=== PATIENT | female | born 1985 | race Caucasian/White ===

== ENCOUNTER 2018-05-05 21:28 | Emergency (ER) | payer BC, SELFPAY ==
[2018-05-05 21:29] VITALS: BP 103/66; PULSE 159; RESP 20; TEMP 37.9; O2SAT 98; BMI 30.7
--- NOTE | 2018-05-05 23:04 | EKG12_ITS ---
Test Reason : GENERAL ILLNESS Blood Pressure : / mmHG Vent. Rate : 118 BPM Atrial Rate : 118 BPM P-R Int : 142 ms QRS Dur : 082 ms QT Int : 316 ms P-R-T Axes : 052 087 011 degrees QTc Int : 442 ms Sinus tachycardia Possible Left atrial enlargement Nonspecific ST and T wave abnormality Abnormal ECG Confirmed by ESTELA PARKER, SHIRA ([id number]), editor [employer] journal SARABJIT VIVAR ([id number]) on 05/09/2018 8:56:57 AM Referred By: JULIO Confirmed By:SHIRA PALMER MD
--- NOTE | 2018-05-05 23:07 | ED.VISSUMM ---
- ER Visit Summary Date of Service: 05/05/18 Chief Complaint: Fever and headache History of Present Illness: The patient is a 32 F who presents for 1 day of fever and headache. Patient states she woke up this morning with a headache and took Excedrin. She has not felt well all day. She took a nap and woke up with a fever of 104. She also has had an associated sore throat that is now improved. She was nauseated. She denies any abdominal pain, vomiting, diarrhea, urinary symptoms. She feels achy all over, including her jaw, in the neck down the back. She recently was treated for a dental infection and is currently on an antibiotic for it. Her son recently was diagnosed with strep throat and is being treated for it. Physical Examination: Vital signs: Febrile, hemodynamically stable, no hypoxia on room air General: well nourished, well developed, appears unwell, able to tolerate the lights on Skin: Very warm and moist, flushed, no rash, no pallor HEENT: normocephalic and atraumatic; PERRL, EOMI, moist mucous membranes, exterior oropharynx shows erythema and mild tonsillar swelling without overt exudate, no sublingual edema, no other lesions, no gingival lesions or noted abscesses, tenderness over the TM joints bilaterally, no submandibular adenopathy, tenderness to the bilateral paraspinal musculature, neck is supple with full range of motion, no meningismus Cardiovascular: Tachycardic rate and rhythm without murmurs, no peripheral edema, 2+ pulses all distal extremities Respiratory: No increased work of breathing, lungs are clear to auscultation bilaterally, no rales, rhonchi or wheezing Abdominal: Abdomen is soft, nontender with normoactive bowel sounds, no guarding or rebound, no masses MSK: Moves all extremities, no deformities, normal strength Neuro: Awake and alert, oriented ?4. No facial droop, sensation and motor function intact and symmetric Test Results: Abnormal Lab Results 05/05/18 05/05/18 05/05/18 23:05 23:30 23:30 WBC 8.7 RBC 4.63 Hgb 13.2 Hct 38.6 MCV 83.4 MCH 28.5 MCHC 34.2 RDW 12.9 RDW Differential 38.8 Plt Count 236 MPV 10.0 Immature Gran % (Auto) 0.100 Neut % (Auto) 88.0 H Lymph % (Auto) 5.8 L [place] % (Auto) 5.6 Eos % (Auto) 0.3 Baso % (Auto) 0.2 Absolute Neuts (auto) 7.7 Absolute Lymphs (auto) 0.51 L Total Counted Not Reportable PT 13.8 INR 1.1 APTT 31.2 Sodium Potassium Chloride Carbon Dioxide Anion Gap BUN Creatinine Estim Creat Clear Calc Est GFR (MDRD) Af Amer Est GFR (MDRD) Non-Af BUN/Creatinine Ratio Glucose Lactic Acid Calcium Total Bilirubin AST ALT Alkaline Phosphatase Total Creatine Kinase Total Protein Albumin Globulin Albumin/Globulin Ratio Urine Color Yellow Urine Clarity Sl. Cloudy Urine pH 5.0 Ur Specific [place] 1.015 Urine Protein Negative Urine Glucose (UA) Normal Urine Ketones Negative Urine Occult Blood 25 H Urine Nitrite Negative Urine Bilirubin Negative Urine Urobilinogen Normal Ur Leukocyte Esterase 25 H Urine RBC 0-5 SEEN Urine WBC 0 SEEN Ur Squamous Epith Cells 5-10 SEEN Urine Bacteria RARE Urine Mucus 1+ Urine Test Negative 05/05/18 05/05/18 23:30 23:30 WBC RBC Hgb Hct MCV MCH MCHC RDW RDW Differential Plt Count MPV Immature Gran % (Auto) Neut % (Auto) Lymph % (Auto) [place] % (Auto) Eos % (Auto) Baso % (Auto) Absolute Neuts (auto) Absolute Lymphs (auto) Total Counted PT INR APTT Sodium 137 Potassium 3.5 Chloride 105 Carbon Dioxide 23.0 Anion Gap 9 BUN 13 Creatinine 0.95 Estim Creat Clear Calc 80.32 Est GFR (MDRD) Af Amer 89 Est GFR (MDRD) Non-Af 73 BUN/Creatinine Ratio 13.7 Glucose 123 H Lactic Acid 1.0 Calcium 8.8 Total Bilirubin 0.60 AST 38 H ALT 57 H Alkaline Phosphatase 81 Total Creatine Kinase 31 Total Protein 8.0 Albumin 4.0 Globulin 4.0 Albumin/Globulin Ratio 1.0 Urine Color Urine Clarity Urine pH Ur Specific [place] Urine Protein Urine Glucose (UA) Urine Ketones Urine Occult Blood Urine Nitrite Urine Bilirubin Urine Urobilinogen Ur Leukocyte Esterase Urine RBC Urine WBC Ur Squamous Epith Cells Urine Bacteria Urine Mucus Urine Test Clinical Impression(s) from Imaging Studies Chest X-Ray 05/05/18 23:40 IMPRESSION: There is no evidence of focal consolidation or pleural effusion. Electronically Signed: Mihaela Ventura MD at 0:18 EDT Tel Direct: [phone], Service support , Facial/Sinus 05/06/18 01:05 IMPRESSION: Left maxillary antral retention cyst. No acute sinusitis or mastoiditis. Cervical lymphoid hyperplasia. No abscess or collection. No peridental abscess detected. Prominent bilateral palatine tonsils possibly secondary to inflammation. Electronically Signed: Manjula Aldridge MD at 2:25 EDT , Service support , Medications Given Discontinued Medications Acetaminophen (Tylenol) 1,000 mg PO X1 ONE Stop: 05/05/18 23:05 Last Admin: 05/05/18 23:28 Dose: 1,000 mg Sodium Chloride () 1,000 mls @ 999 mls/hr IV .Q1H1M JASPREET Last Admin: 05/05/18 23:28 Dose: 999 mls/hr Sodium Chloride () 1,000 mls @ 999 mls/hr IV .Q1H1M ONE Stop: 05/06/18 01:09 Last Admin: 05/06/18 00:31 Dose: 999 mls/hr Levofloxacin (Levaquin Iv) 500 mg in 100 mls @ 100 mls/hr IV X1 ONE Stop: 05/06/18 03:06 Last Admin: 05/06/18 02:25 Dose: 100 mls/hr Ketorolac Tromethamine (Toradol) 15 mg IV X1 ONE Stop: 05/06/18 00:08 Last Admin: 05/06/18 00:29 Dose: 15 mg Emergency Department Course and Treatment: Because patient presented with tachycardia, tachypnea and fever, sepsis workup was performed. She did not have any meningeal signs on examination thus no lumbar puncture was performed. Patient was given Tylenol and IV fluids. Labs showed no leukocytosis, no bandemia, no significant hepatic derangements, renal derangements or electrolyte derangements. Urine was negative for infection. Lactate was 1.0. negative. Strep swab was negative. Patient continued to be tachycardic, although it improved from her initial presentation. She also continued to complain of the headache, that she was given Toradol and additional IV fluids. Because of her recent history of dental infection and now her worsening of her condition, CT of the sinuses was performed to evaluate for any possible infiltration into the sinuses or formation of an abscess. In the meantime, patient was started on coverage for sinusitis with Levaquin. CT showed enlargement of the tonsils and cervical lymphadenopathy but no other acute findings. After receiving Toradol and IV fluids, patient's tachycardia had resolved, now with a heart rate of 88. Fever has resolved. Patient feels much better, and is no longer sweaty or flushed. Her neck was supple, nontender, full active range of motion, negative jolt sign. She stated her headache was much better and only minor now. It is unclear the exact cause of patient's symptoms, but given the recent dental infection, she was covered for sinusitis/ failed treatment of dental infection with Levaquin (patient allergic to PCNs), receiving an IV dose in the emergency department while her workup was in progress. Patient is to return if she has any worsening of her condition. Discharged home. Treatment Plan: [] Disposition: [] Impression: Febrile illness This note was generated with [employer] dictation software. It may contain incorrect words, spelling, and punctuation that were not noted in review of the chart prior to signing ED Disposition - Plan for ED Patient: Disposition: Home or Assisted Living Chief Complaint: Fever Instructions: ED Fever Unconf Cause, ED Sinusitis Abx Tx Prescriptions: Levofloxacin [Levaquin] 500 mg PO DAILY #4 tab Referrals: Isaac Munoz III, MD [Primary Care Provider] - 3-5 Days if not improving Additional Instructions: You were worked up for your headache, fever, sore throat and sore muscles. Your workup did not show an obvious source for the symptoms, with no findings of an abscess from your recent dental infection that might be causing your fever. You were given antibiotics to cover you for acute sinusitis. Please use Tylenol, ibuprofen or naproxen as needed for any further fever, headache and achiness. If at any point your symptoms worsen, you develop a stiff neck, severe unrelenting headache, difficulty swallowing, blurry or double vision, intolerance of light, severe nausea or vomiting, chest pain, shortness of breath, or any other concerns, please return immediately to the emergency department for another evaluation.
--- NOTE | 2018-05-05 23:10 | ED.DCSUM_ITS ---
- ER Visit Summary Date of Service: 05/05/18 Chief Complaint: Fever and headache History of Present Illness: The patient is a 32 F who presents for 1 day of fever and headache. Patient states she woke up this morning with a headache and took Excedrin. She has not felt well all day. She took a nap and woke up with a fever of 104. She also has had an associated sore throat that is now improved. She was nauseated. She denies any abdominal pain, vomiting, diarrhea , urinary symptoms. She feels achy all over, including her jaw, in the neck down the back. She recently was treated for a dental infection and is currently on an antibiotic for it. Her son recently was diagnosed with strep throat and is being treated for it. Physical Examination: Vital signs: Febrile, hemodynamically stable, no hypoxia on room air General: well nourished, well developed, appears unwell, able to tolerate the lights on Skin: Very warm and moist, flushed, no rash, no pallor HEENT: normocephalic and atraumatic; PERRL, EOMI, moist mucous membranes, exterior oropharynx shows erythema and mild tonsillar swelling without overt exudate, no sublingual edema, no other lesions, no gingival lesions or noted abscesses, tenderness over the TM joints bilaterally, no submandibular adenopathy, tenderness to the bilateral paraspinal musculature, neck is supple with full range of motion, no meningismus Cardiovascular: Tachycardic rate and rhythm without murmurs, no peripheral edema , 2+ pulses all distal extremities Respiratory: No increased work of breathing, lungs are clear to auscultation bilaterally, no rales, rhonchi or wheezing Abdominal: Abdomen is soft, nontender with normoactive bowel sounds, no guarding or rebound, no masses MSK: Moves all extremities, no deformities, normal strength Neuro: Awake and alert, oriented ?4. No facial droop, sensation and motor function intact and symmetric Test Results: Abnormal Lab Results 05/05/18 05/05/18 05/05/18 23:05 23:30 23:30 WBC 8.7 RBC 4.63 Hgb 13.2 Hct 38.6 MCV 83.4 MCH 28.5 MCHC 34.2 RDW 12.9 RDW Differential 38.8 Plt Count 236 MPV 10.0 Immature Gran % (Auto) 0.100 Neut % (Auto) 88.0 H Lymph % (Auto) 5.8 L [place] % (Auto) 5.6 Eos % (Auto) 0.3 Baso % (Auto) 0.2 Absolute Neuts (auto) 7.7 Absolute Lymphs (auto) 0.51 L Total Counted Not Reportable PT 13.8 INR 1.1 APTT 31.2 Sodium Potassium Chloride Carbon Dioxide Anion Gap BUN Creatinine Estim Creat Clear Calc Est GFR (MDRD) Af Amer Est GFR (MDRD) Non-Af BUN/Creatinine Ratio Glucose Lactic Acid Calcium Total Bilirubin AST ALT Alkaline Phosphatase Total Creatine Kinase Total Protein Albumin Globulin Albumin/Globulin Ratio Urine Color Yellow Urine Clarity Sl. Cloudy Urine pH 5.0 Ur Specific [place] 1.015 Urine Protein Negative Urine Glucose (UA) Normal Urine Ketones Negative Urine Occult Blood 25 H Urine Nitrite Negative Urine Bilirubin Negative Urine Urobilinogen Normal Ur Leukocyte Esterase 25 H Urine RBC 0-5 SEEN Urine WBC 0 SEEN Ur Squamous Epith Cells 5-10 SEEN Urine Bacteria RARE Urine Mucus 1+ Urine Test Negative 05/05/18 05/05/18 23:30 23:30 WBC RBC Hgb Hct MCV MCH MCHC RDW RDW Differential Plt Count MPV Immature Gran % (Auto) Neut % (Auto) Lymph % (Auto) [place] % (Auto) Eos % (Auto) Baso % (Auto) Absolute Neuts (auto) Absolute Lymphs (auto) Total Counted PT INR APTT Sodium 137 Potassium 3.5 Chloride 105 Carbon Dioxide 23.0 Anion Gap 9 BUN 13 Creatinine 0.95 Estim Creat Clear Calc 80.32 Est GFR (MDRD) Af Amer 89 Est GFR (MDRD) Non-Af 73 BUN/Creatinine Ratio 13.7 Glucose 123 H Lactic Acid 1.0 Calcium 8.8 Total Bilirubin 0.60 AST 38 H ALT 57 H Alkaline Phosphatase 81 Total Creatine Kinase 31 Total Protein 8.0 Albumin 4.0 Globulin 4.0 Albumin/Globulin Ratio 1.0 Urine Color Urine Clarity Urine pH Ur Specific [place] Urine Protein Urine Glucose (UA) Urine Ketones Urine Occult Blood Urine Nitrite Urine Bilirubin Urine Urobilinogen Ur Leukocyte Esterase Urine RBC Urine WBC Ur Squamous Epith Cells Urine Bacteria Urine Mucus Urine Test Clinical Impression(s) from Imaging Studies Chest X-Ray 05/05/18 23:40 IMPRESSION: There is no evidence of focal consolidation or pleural effusion. Electronically Signed: Mihaela Ventura MD at 0:18 EDT Tel Direct: [phone], Service support , Facial/Sinus 05/06/18 01:05 IMPRESSION: Left maxillary antral retention cyst. No acute sinusitis or mastoiditis. Cervical lymphoid hyperplasia. No abscess or collection. No peridental abscess detected. Prominent bilateral palatine tonsils possibly secondary to inflammation. Electronically Signed: Manjula Aldridge MD at 2:25 EDT , Service support , Medications Given Discontinued Medications Acetaminophen (Tylenol) 1,000 mg PO X1 ONE Stop: 05/05/18 23:05 Last Admin: 05/05/18 23:28 Dose: 1,000 mg Sodium Chloride () 1,000 mls @ 999 mls/hr IV .Q1H1M JASPREET Last Admin: 05/05/18 23:28 Dose: 999 mls/hr Sodium Chloride () 1,000 mls @ 999 mls/hr IV .Q1H1M ONE Stop: 05/06/18 01:09 Last Admin: 05/06/18 00:31 Dose: 999 mls/hr Levofloxacin (Levaquin Iv) 500 mg in 100 mls @ 100 mls/hr IV X1 ONE Stop: 05/06/18 03:06 Last Admin: 05/06/18 02:25 Dose: 100 mls/hr Ketorolac Tromethamine (Toradol) 15 mg IV X1 ONE Stop: 05/06/18 00:08 Last Admin: 05/06/18 00:29 Dose: 15 mg Emergency Department Course and Treatment: Because patient presented with tachycardia, tachypnea and fever, sepsis workup was performed. She did not have any meningeal signs on examination thus no lumbar puncture was performed. Patient was given Tylenol and IV fluids. Labs showed no leukocytosis, no bandemia, no significant hepatic derangements, renal derangements or electrolyte derangements. Urine was negative for infection. Lactate was 1.0. negative. Strep swab was negative. Patient continued to be tachycardic, although it improved from her initial presentation. She also continued to complain of the headache, that she was given Toradol and additional IV fluids. Because of her recent history of dental infection and now her worsening of her condition, CT of the sinuses was performed to evaluate for any possible infiltration into the sinuses or formation of an abscess. In the meantime, patient was started on coverage for sinusitis with Levaquin. CT showed enlargement of the tonsils and cervical lymphadenopathy but no other acute findings. After receiving Toradol and IV fluids, patient's tachycardia had resolved, now with a heart rate of 88. Fever has resolved. Patient feels much better, and is no longer sweaty or flushed. Her neck was supple, nontender, full active range of motion, negative jolt sign. She stated her headache was much better and only minor now. It is unclear the exact cause of patient's symptoms, but given the recent dental infection, she was covered for sinusitis/ failed treatment of dental infection with Levaquin (patient allergic to PCNs), receiving an IV dose in the emergency department while her workup was in progress. Patient is to return if she has any worsening of her condition. Discharged home. Treatment Plan: [] Disposition: [] Impression: Febrile illness This note was generated with [employer]ango dictation software. It may contain incorrect words, spelling, and punctuation that were not noted in review of the chart prior to signing ED Disposition - Plan for ED Patient: Disposition: Home or Assisted Living Chief Complaint: Fever Instructions: ED Fever Unconf Cause, ED Sinusitis Abx Tx Prescriptions: Levofloxacin [Levaquin] 500 mg PO DAILY #4 tab Referrals: Isaac Munoz III, MD [Primary Care Provider] - 3-5 Days if not improving Additional Instructions: You were worked up for your headache, fever, sore throat and sore muscles. Your workup did not show an obvious source for the symptoms, with no findings of an abscess from your recent dental infection that might be causing your fever. You were given antibiotics to cover you for acute sinusitis. Please use Tylenol, ibuprofen or naproxen as needed for any further fever, headache and achiness. If at any point your symptoms worsen, you develop a stiff neck, severe unrelenting headache, difficulty swallowing, blurry or double vision, intolerance of light, severe nausea or vomiting, chest pain, shortness of breath , or any other concerns, please return immediately to the emergency department for another evaluation.
[2018-05-05] MEDS: Acetaminophen 500 MG Tablet 1000 MG PO (23:28)
[2018-05-05] MEDS: 0.9% Normal Saline 1,000 ML 999 ML IV (23:28)
--- NOTE | 2018-05-05 23:40 | RAD_ITS ---
STUDY: X-RAY CHEST REASON FOR EXAM: Female, 32 years old. Fever TECHNIQUE: Frontal and lateral views of the chest were obtained. COMPARISON: Chest CTA dated April 28, 2014 FINDINGS: The lungs are adequately aerated. There are no focal airspace opacities. There is no demonstrated pleural abnormality. The cardiac silhouette is normal in size. The mediastinum and hilar regions are unremarkable. Normal visualized pulmonary arteries. Normal visualized aortic arch and descending thoracic aorta. The thoracic spine is unremarkable. The visualized ribs, clavicles, and shoulders are unremarkable. There is no demonstrated abnormality of the visualized upper abdomen. RAD/Chest PA and Lateral IMPRESSION: There is no evidence of focal consolidation or pleural effusion. Electronically Signed: Mihaela Ventura MD at 0:18 EDT Tel Direct: [phone], Service support ,
[2018-05-05 23:45] LABS: White Blood Cells 0 SEEN /hpf (0-5)
[2018-05-05 23:48] VITALS: BP 104/94; PULSE 119; RESP 29; O2SAT 100
[2018-05-05 23:49] LABS: Color, Urine Yellow (Yellow); Glucose, Dipstick Normal (Normal); Ketone-Dipstick Negative (Negative); Leukocyte Esterase-Dipstick 25 /ul (Negative); Nitrite-Dipstick Negative (Negative); Occult Blood-Urine 25 /ul (Negative); Protein-Dipstick Negative (Negative); Specific Gravity, Urine 1.015 (1.002-1.030); Urine Bilirubin Dipstick Negative (Negative); Urine Clarity Sl. Cloudy (Clear); Urine Urobilinogen Normal (Normal)
[2018-05-05 23:51] LABS: Internal QC Validated? YES +Cl - CLEAR BKGD; Pregnancy, Urine Negative Negative
[2018-05-05 23:52] LABS: International Normalized Ratio 1.1; Prothrombin Time (Protime)PT. 13.8 SECONDS (11.7-14.9)
[2018-05-05 23:53] LABS: Partial Thromboplast Time 31.2 Seconds (24.1-36.2)
[2018-05-05 23:54] LABS: Bacteria RARE /hpf (None Seen); Squamous Epithelial Cells - UA 5-10 SEEN /hpf (5-10)
[2018-05-05 23:55] LABS: Mucous, Urine 1+ /hpf (<or=2+); Red Blood Cells-Urine 0-5 SEEN /hpf (0-5)
[2018-05-05 23:58] LABS: Absolute Lymphocyte Count 0.51 X10^3/ul (0.83-4.51); Absolute Neutrophil Count 7.7 X10^3/uL (2.0-7.7); Basophil# 0.02 X10^3/uL; Basophil% 0.2 % (0-1); Eosinophil# 0.03 X10^3/uL; Eosinophils% 0.3 % (0-5); Hematocrit 38.6 % (37-47); Hemoglobin 13.2 g/dl (12.0-15.0); Lymphocyte # 0.51 X10^3/ul (4.0); Lymphocyte % 5.8 % (19-41); Mean Corp Hgb Conc 34.2 g/gl (32-36); Mean Corpuscular Hgb 28.5 pg (27.0-32.0); Mean Corpuscular Volume 83.4 fL (81-99); Monocyte# 0.49 X10^3/uL; Monocyte% 5.6 % (0-10); Neutrophil # 7.66 X10^3/uL (2.7-7.7); Platelet Count 236 K/mm3 (150-450); RBC Distribution Width CV 12.9 % (11.6-14.6); RBC Distribution Width SD 38.8 fl (35.1-43.9); Red Blood Count 4.63 M/mm3 (4.2-5.4); White Blood Count 8.7 K/mm3 (4.4-11.0)
[2018-05-05 23:59] LABS: Differential Indicated SCAN CRITERIA MET; POSITIVE COUNT NO; POSITIVE DIFFERENTIAL YES; POSITIVE MORPHOLOGY NO
[2018-05-06 00:04] VITALS: BP 94/60; PULSE 112; RESP 29; O2SAT 96
[2018-05-06 00:05] VITALS: TEMP 37.1
[2018-05-06 00:12] LABS: AST(SGOT) 38 U/L (15-37); Alanine Aminotransfer ALT/SGPT 57 U/L (13-56); Alkaline Phosphatase 81 U/L (45-117); Anion Gap 9 (5-15); BUN 13 mg/dL (7-18); BUN/Creat Ratio 13.7 RATIO (10-20); CPK Total, Creatine Kinase 31 U/L (26-192); Calcium,Total 8.8 mg/dL (8.5-10.1); Chloride 105 mmol/L (98-107); Creatinine, Serum 0.95 mg/dL (0.55-1.02); EST Glomerular Filtration Rate 73 mL/min (>60); Est Glom Filt Rate - Afr Amer 89 mL/min (>60); Estimated Creatinine Clearance 80.32 ml/min; Glucose 123 mg/dL (74-106); Potassium 3.5 mmol/L (3.5-5.1); Sodium Level 137 mmol/L (136-145)
[2018-05-06] MEDS: Ketorolac 15 MG/ML Vial IV (00:29)
[2018-05-06] MEDS: 0.9% Normal Saline 1,000 ML 999 ML IV (00:31)
[2018-05-06 00:55] VITALS: BP 94/59; PULSE 103; RESP 26; O2SAT 97
[2018-05-06 01:00] VITALS: BP 95/55; PULSE 105; RESP 28; O2SAT 95
--- NOTE | 2018-05-06 01:05 | CT_ITS ---
STUDY: CT FACIAL BONES WITH CONTRAST REASON FOR EXAM: Female, 32 years old. Fever and headache, treated with antibiotics for dental infection. RADIATION DOSAGE (If Supplied By Facility): CTDIvol = ( 29.38 ) mGy, DLP = ( 532.76 ) mGycm TECHNIQUE: The patient was scanned in a multi detector CT scanner. Transaxial imaging was performed following the intravenous administration of 100 ml of Isovue 300 contrast material. Sagittal and coronal images were reconstructed. Individualized dose optimization techniques were used for this CT. COMPARISON: None. FINDINGS: Normal soft tissue structures. Normal orbital king and orbital contents. Normal nasal bones and anterior nasal spine. Normal facial bones. There is no demonstrated fracture. Round low attenuation in the maxillary antrum 1.9 x 1.4 cm likely retention cyst with otherwise normal visualized paranasal sinuses. The bilateral mastoid air cells are clear. The mandible and bilateral temporomandibular joints are intact. Bilateral right greater than left neck lymph nodes likely lymphoid hyperplasia. Prominent bilateral palatine tonsils. CT/Sinus/Facial Bone WITH Contras IMPRESSION: Left maxillary antral retention cyst. No acute sinusitis or mastoiditis. Cervical lymphoid hyperplasia. No abscess or collection. No peridental abscess detected. Prominent bilateral palatine tonsils possibly secondary to inflammation. Electronically Signed: Manjula Aldridge MD at 2:25 EDT , Service support ,
--- NOTE | 2018-05-06 01:41 | ED.RN ---
NO OLD EKGS IN MUSE
[2018-05-06 02:00] VITALS: BP 101/59; PULSE 99; RESP 25; O2SAT 96
[2018-05-06] MEDS: levoFLOXacin IV 500 MG/100 ML BAG 100 MG IV (02:25)
--- NOTE | 2018-05-06 03:30 | ED.DEP ---
ED Disposition - Plan for ED Patient: Disposition: Home or Assisted Living Chief Complaint: Fever Instructions: ED Sinusitis Abx Tx, ED Fever Unconf Cause Prescriptions: Levofloxacin [Levaquin] 500 mg PO DAILY #4 tab Referrals: Isaac Munoz III, MD [Primary Care Provider] - 3-5 Days if not improving Additional Instructions: You were worked up for your headache, fever, sore throat and sore muscles. Your workup did not show an obvious source for the symptoms, with no findings of an abscess from your recent dental infection that might be causing your fever. You were given antibiotics to cover you for acute sinusitis. Please use Tylenol, ibuprofen or naproxen as needed for any further fever, headache and achiness. If at any point your symptoms worsen, you develop a stiff neck, severe unrelenting headache, difficulty swallowing, blurry or double vision, intolerance of light, severe nausea or vomiting, chest pain, shortness of breath, or any other concerns, please return immediately to the emergency department for another evaluation.
--- NOTE | 2018-05-06 03:34 | DCINST.ED_ITS ---
ED Disposition - Plan for ED Patient: Disposition: Home or Assisted Living Chief Complaint: Fever Instructions: ED Sinusitis Abx Tx, ED Fever Unconf Cause Prescriptions: Levofloxacin [Levaquin] 500 mg PO DAILY #4 tab Referrals: Isaac Munoz III, MD [Primary Care Provider] - 3-5 Days if not improving Additional Instructions: You were worked up for your headache, fever, sore throat and sore muscles. Your workup did not show an obvious source for the symptoms, with no findings of an abscess from your recent dental infection that might be causing your fever. You were given antibiotics to cover you for acute sinusitis. Please use Tylenol, ibuprofen or naproxen as needed for any further fever, headache and achiness. If at any point your symptoms worsen, you develop a stiff neck, severe unrelenting headache, difficulty swallowing, blurry or double vision, intolerance of light, severe nausea or vomiting, chest pain, shortness of breath , or any other concerns, please return immediately to the emergency department for another evaluation.
[2018-05-06 03:48] VITALS: RESP 18
== END 2018-05-06 03:50 | disposition home or self-care (01) ==
PROVIDERS: Emergency Provider Emergency Medicine; Family Provider Family Medicine; PCP Family Medicine
DX: R50.9 Fever, unspecified (principal); K04.7 Periapical abscess without sinus
CPT/HCPCS: 70487; 71046; 80053; 81001; 81025; 82550; 83605; 85025; 85610; 85730; 87040; 87086; 87880; 93005; 96361; 96365; 96375; 99284; J7030; Q9967

== ENCOUNTER → 2020-11-12 13:04 | Outpatient (CLI) | payer BC, SELFPAY ==
[2020-11-12 10:54] VITALS: BMI 26.9
[2020-11-16 09:49] LABS: HPV APTIMA, High Risk Negative (Negative)
== END ==
LOC: LAB 13:05 → LABSPEC 13:08
PROVIDERS: PCP Family Medicine; Referring Provider Nurse Practitioner Women's Health; Visit Provider Nurse Practitioner Women's Health
DX: Z12.4 Encounter for screening for malignant neoplasm of cervix (principal)
CPT/HCPCS: 87624; 88175; G0145

== ENCOUNTER → 2020-11-19 11:21 | Outpatient (CLI) | payer BC, SELFPAY ==
[2020-11-12 10:54] VITALS: BMI 26.9
--- NOTE | 2020-11-19 11:23 | US_ITS ---
STUDY: ULTRASOUND OF THE FEMALE PELVIS - COMPLETE REASON FOR EXAM: Female, 34 years old. Menorrhagia LMP: 11/02/2020 TECHNIQUE: Transabdominal and Transvaginal TECHNICAL QUALITY: Adequate. COMPARISON: None. FINDINGS: The uterus is anteverted and is in a midline position. The uterus measures 8.5 x 5.9 x 4.3 cm. Normal uterine cervix. The endometrium measures 11.3 mm in thickness, and is hyperechoic. There is no demonstrated endometrial mass. There is no demonstrated myometrial mass. I.U.D. - The patient does not have an I.U.D. The right ovary is visualized. The right ovary measures 3.6 x 2.0 x 2.4 cm. There is no right ovarian cyst or ovarian mass. There is no visualized right adnexal mass or complex lesion. There is normal arterial and normal venous vascularity. The left ovary is visualized. The left ovary measures 2.0 x 1.6 x 1.4 cm. There is no left ovarian cyst or ovarian mass. There is no visualized left adnexal mass or complex lesion. There is normal arterial and normal venous vascularity. There is no fluid in the cul-de-sac. The pre void volume of the bladder was 300.12 ml. The post void volume of the bladder was less than 5 ml. Polycystic ovary disease: No. US/Pelvic (Non ) IMPRESSION: Normal female pelvis. Electronically Signed: Toby Dallas MD at 14:47 EDT , Service support ,
--- NOTE | 2020-11-19 11:23 | US_ITS ---
STUDY: ULTRASOUND OF THE FEMALE PELVIS - COMPLETE REASON FOR EXAM: Female, 34 years old. Menorrhagia LMP: 11/02/2020 TECHNIQUE: Transabdominal and Transvaginal TECHNICAL QUALITY: Adequate. COMPARISON: None. FINDINGS: The uterus is anteverted and is in a midline position. The uterus measures 8.5 x 5.9 x 4.3 cm. Normal uterine cervix. The endometrium measures 11.3 mm in thickness, and is hyperechoic. There is no demonstrated endometrial mass. There is no demonstrated myometrial mass. I.U.D. - The patient does not have an I.U.D. The right ovary is visualized. The right ovary measures 3.6 x 2.0 x 2.4 cm. There is no right ovarian cyst or ovarian mass. There is no visualized right adnexal mass or complex lesion. There is normal arterial and normal venous vascularity. The left ovary is visualized. The left ovary measures 2.0 x 1.6 x 1.4 cm. There is no left ovarian cyst or ovarian mass. There is no visualized left adnexal mass or complex lesion. There is normal arterial and normal venous vascularity. There is no fluid in the cul-de-sac. The pre void volume of the bladder was 300.12 ml. The post void volume of the bladder was less than 5 ml. Polycystic ovary disease: No. US/Transvaginal Non- IMPRESSION: Normal female pelvis. Electronically Signed: Toby Dallas MD at 14:47 EDT , Service support ,
== END ==
LOC: US 11:22
PROVIDERS: PCP Family Medicine; Referring Provider Nurse Practitioner Women's Health; Visit Provider Nurse Practitioner Women's Health
DX: N92.1 Excessive and frequent menstruation with irregular cycle (principal)
CPT/HCPCS: 76830; 76856; 93976

== ENCOUNTER 2022-05-04 12:07 | Emergency (ER) | payer BC, SELFPAY ==
[2022-05-04] VITALS (7 sets, daily range): BP systolic 100–116; BP diastolic 53–89; PULSE 68–86; RESP 13–24; TEMP 36.7; O2SAT 97–100; BMI 27.4
--- NOTE | 2022-05-04 12:55 | ED.VIS.CHEST ---
HPI History of Present Illness Chief Complaint: Chest Pain Informant: patient Onset/Context/Timing Onset: Today Activity at onset: gradual Timing: Continuous Quality: Positive for Dull Location: Left Parasternal Current Severity: Mild Maximum Severity: Mild Worsened By: Nothing Relieved By: Nothing Associated Symptoms: Negative for Nausea, Vomiting, Diaphoresis, Dyspnea, Cough, Fever, Lightheadedness, Acid Reflux or Palpitations Narrative Narrative: 36-year-old female no seen past medical history. Prior cholecystectomy and ectopic. No recent surgeries. States this morning when she awoke she had pain in her back along her left scapula. She described it as a sharp pain. Denies any recent falls injury or trauma. 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 She states she denies any like this before. It can radiate to the front of her chest today. She thought she should have it evaluated. She denies any nausea, vomiting, diarrhea, fever. No diaphoresis. No shortness of breath. No history of DVT or PE. No recent travel, surgery, hospitalization or immobilization. No leg pain or swelling. No hemoptysis. Nothing particularly makes the pain better or worse. Prior Similar Symptoms: No Recent Illness/Hospitalization: No CVD Risk Factors: Negative for Hypertension, Diabetes or Smoking PE Risk Factors: Negative for Recent Travel/Surgery, Recent Immobilization, Prior DVT or PE, Cancer or OCP + Smoking + >/=35 TAD Risk Factors: Negative for Marfan's Syndrome PFSH PFSH Medical History no medical history no medical history Home Medications multivitamin 1 tablet PO DAILY 11/12/20 [History Last Taken Unknown] Allergy/AdvReac Type Severity Reaction Status Date / Time Penicillins AdvReac Unknown Verified 05/04/22 12:31 Surgical History Ectopic of left ovary Hx of cholecystectomy Social History household members: spouse and children number of children: 1 current occupational status: employed current occupation: [employer] history of recent travel: No sexually active: Yes Smoking Status: Never smoker alcohol intake: current alcohol intake frequency: a few times a month substance use type: does not use diet: low carbohydrate what type of physical activity do you participate in: none seatbelt use: always do you feel safe at home: Yes additional social history: - Timothy ROS ROS ED ROS Narrative Atypical back and chest pain. Review of Systems ROS Unobtainable: Denies due to encephalopathy Constitutional Constitutional ED: Denies chills or fever(s) Eyes Eyes: Denies blurry vision ENT ENT ED: Denies ear pain Cardiovascular Cardiovascular: Reports as per HPI and chest pain; Denies palpitations or racing heartbeat Respiratory/Chest Respiratory/Chest: Denies cough or dyspnea Gastrointestinal Gastrointestinal: Denies abdominal pain or constipation Genitourinary Genitourinary ED: Denies dysuria or hematuria Musculoskeletal Musculoskeletal: Reports back pain; Denies arthralgias Integumentary Denies abscess Neurologic Neurologic: Denies headache(s) Psychiatric Psychiatric: Denies anxiety or depression Endocrine Endocrinology: Denies cold intolerance or heat intolerance Hematologic/Lymphatic Hematologic/Lymphatic: Denies easy bleeding Allergic/Immunologic Allergic/Immunologic ED: Denies mouth swelling EXAM Physical Exam Narrative Exam Narrative: Well-appearing 36-year-old female no acute distress. Vital signs stable afebrile. Pulse ox 90% on room air no signs hypoxia. H EENT exam unremarkable. Neck nontender. Lungs are clear. Heart regular rhythm no murmur. Rate about 75. Chest wall mild reproducible chest wall discomfort just the left of the sternum. No ecchymosis or bruising. No subcu air or crepitance. Abdomen soft nontender. Back nontender. No significant reproducible tenderness. Where she states the pain is is along her left scapula medially. But is not really reproducible. She has full range of motion of both shoulders. She is moving all 4 extremities. Calves are nontender without edema or cords. Equal symmetrical radial pulses. Neurologic exam normal. Const Vital Signs: 05/04/22 12:08 05/04/22 12:28 05/04/22 12:31 Temperature 98.1 F Temperature Source Temporal Pulse Rate 86 75 Respiratory Rate 18 20 H Respiratory Effort Normal Non-Labored Blood Pressure 116/89 H 107/69 Blood Pressure Mean 98 81 Pulse Ox 99 99 Oxygen Delivery Method Room Air Room Air 05/04/22 12:59 05/04/22 13:11 05/04/22 14:27 Temperature Temperature Source Pulse Rate 78 74 Respiratory Rate 24 H 20 H Respiratory Effort Blood Pressure 107/70 100/53 L Blood Pressure Mean 82 68 Pulse Ox 100 99 97 Oxygen Delivery Method Room Air Room Air Room Air Positive well nourished and well developed; Negative for obese, cachectic, contractures or unkempt General Appearance ED: well developed; Negative for unkempt, cachectic, contractures or pallor Nutritional Appearance: Negative for cachectic or obese HEENT Reports moist mucous membranes normocephalic and atraumatic; Negative for trauma or tenderness Eyes PERRL and EOMs intact bilaterally General Eye ED: Negative for pale conjunctiva or scleral icterus Neck no lymphadenopathy, supple and no JVD General: Negative for tenderness Chest Wall inspection of chest normal and palpation of chest normal Chest: Negative for tenderness Resp normal respiratory effort and clear to auscultation bilaterally Effort and Inspection: respiratory distress Auscultation: Negative for rales, rhonchi or wheezes Cardio regular rate, regular rhythm, S1 normal heart sound, S2 normal heart sound and no murmurs Rate: Negative for bradycardia Rhythm: Negative for abnormal rhythm GI normal to inspection, nondistended, normoactive bowel sounds, soft to palpation, non-tender, non-distended and no masses Auscultation: Negative for hyperactive bowel sounds Palpation: Negative for splenomegaly or mass Back/Spine no CVA tenderness and no thoracic nor lumbar tenderness General Back: Negative for CVA tenderness Cervical Spine: Negative for cervical spine tenderness Extremity normal to inspection General Extremety ED: Negative for edema, pulses abnormal or tenderness General Extremity: Negative for edema or pulses abnormal Neuro oriented x3, CN's II-XII intact bilaterally and no sensory deficits noted Sensorium / Orientation: awake, alert, oriented to person, oriented to place and oriented to time; Negative for confused, lethargic or stuporous Motor Exam: strength 5/5 throughout Psych mental status grossly normal Appearance: Negative for unkempt Attitude: No agitated Mood & Affect: Negative for depressed, anxious or tearful Skin no rashes or lesions noted and no wounds General Skin Exam: Negative for jaundice or pallor Rashes: No rashes noted Trauma: Negative for abrasion or laceration MDM MDM MDM Narrative Medical decision making narrative: 36-year-old atypical back and chest discomfort. Swelling not reproducible it does sound somewhat musculoskeletal however. No risk factors for DVT or PE. No cardiac history. Clinically does not sound like a dissection. She has very normal blood pressure. She undergo cardiac work-up and a D-dimer and will go from there. Repeat exam patient is doing well at 2:57 PM. We went over all of her test results. Repeat exam heart lung abdominal back exam are unremarkable. I explained to him I did not have a specific cause for her pain. She will be discharged home with outpatient follow-up with her primary care provider. Knows to return if worse. Lab Data Attestation: I reviewed the patient's lab results. Lab results narrative: CBC White count 7. H&H 12.3 and 37. D-dimer is negative at less than 0.27 electrolytes normal gap of 8 normal BUN and creatinine. Glucose 93. Troponin is 3. Labs: Laboratory Results - last 24 hr 05/04/22 05/04/22 05/04/22 12:57 12:57 12:57 WBC 7.0 RBC 4.37 Hgb 12.3 Hct 37.9 MCV 86.7 MCH 28.1 MCHC 32.5 RDW Std Deviation 39.0 RDW Coeff of Kae 12.4 Plt Count 310 MPV 9.7 Immature Gran % (Auto) 0.300 Neut % (Auto) 62.9 Lymph % (Auto) 25.8 [place] % (Auto) 7.2 Eos % (Auto) 2.9 Baso % (Auto) 0.9 Absolute Neuts (auto) 4.4 Absolute Lymphs (auto) 1.80 Nucleated RBC % 0 D-Dimer Quant (PE/DVT) < 0.27 L Sodium 141 Potassium 4.0 Chloride 108 H Carbon Dioxide 25.0 Anion Gap 8 BUN 11 Creatinine 0.75 Estim Creat Clear Calc 98.01 Est GFR (MDRD) Af Amer 112 Est GFR (MDRD) Non-Af 93 BUN/Creatinine Ratio 14.6 Glucose 93 Calcium 9.3 Troponin I High Sens 3 Radiography Chest X-Ray - ED: 1 View, Read by ED Physician, Read by Radiologist, Normal, Heart, Lungs, Mediastinum, Bony Structures and No Acute Disease Diagnostic Testing: Clinical Impression(s) from Imaging Studies Chest X-Ray 05/04/22 13:11 IMPRESSION: No radiographic evidence of acute cardiopulmonary disease. Electronically Signed: Mamadou Brown MD at 13:37 EDT , Chest x-ray, portable, single view interpreted by myself and radiologist shows no acute abnormality. Rhythm Strip Rhythm Strip: Sinus Rhythm Rate: 75 Ectopy: None EKG Initial EKG: Attestation: I personally reviewed and interpreted this EKG as follows: Interpretation: Sinus Rhythm and No Acute Injury Pattern Comments: Normal sinus rhythm rate of 75 no acute signs of IN or ischemia. No dysrhythmia. Discharge Plan Triage Chief Complaint: Chest Pain ED Provider: Keo Bean Dx/Rx/DC Orders Clinical Impression: Back pain, Chest pain Instructions: ED Chest Pain, Uncertain Cause Prescriptions: No Action multivitamin Tablet 1 tablet PO DAILY Primary Care Provider: Merna Dimas Referrals: Merna Dimas PA [Primary Care Provider] - 3-5 Days if not improving Activity Restrictions/Additional Instructions: Follow-up with primary care provider if not improving. Motrin for any pain. All your test results, EKG and x-ray today were unremarkable. Disposition Disposition: Home, Self Care
[2022-05-04 13:03] LABS: Absolute Neutrophil Count 4.4 X10^3/uL (2.0-7.7); Basophil# 0.06 X10^3/uL; Basophil% 0.9 % (0-1); Eosinophils% 2.9 % (0-5); Hematocrit 37.9 % (37-47); Hemoglobin 12.3 g/dL (12.0-15.0); Lymphocyte % 25.8 % (19-41); Mean Corp Hgb Conc 32.5 g/dL (32-36); Mean Corpuscular Hgb 28.1 pg (27.0-32.0); Mean Corpuscular Volume 86.7 fL (81-99); Mean Platelet Vol. 9.7 fl (6.2-12.0); Monocyte% 7.2 % (0-10); NRBC Flagged by Analyzer 0 % (0-5); Neutrophil # 4.39 X10^3/uL (2.7-7.7); Neutrophil % 62.9 % (47-70); Platelet Count 310 K/mm3 (150-450); RBC Distribution Width CV 12.4 % (11.6-14.6); Red Blood Count 4.37 M/mm3 (4.2-5.4)
--- NOTE | 2022-05-04 13:11 | RAD_ITS ---
INDICATION: chest pain EXAMINATION/TECHNIQUE: X-RAY - XR Chest 1 View COMPARISON: 05/05/2018. FINDINGS: LINES/DEVICES: None. LUNGS: No consolidation, edema or effusion. No pneumothorax. MEDIASTINUM AND CARDIOVASCULAR STRUCTURES: Cardiac silhouette not enlarged. Central airways and mediastinal contour are unremarkable. BONES AND SOFT TISSUES: Unremarkable. RAD/Chest 1 View (Portable) IMPRESSION: No radiographic evidence of acute cardiopulmonary disease. Electronically Signed: Mamadou Brown MD at 13:37 EDT ,
[2022-05-04 13:23] LABS: D-Dimer Quantitative (DVT/PE) < 0.27 FEU/ug/m (0.27-0.49)
[2022-05-04 13:25] LABS: Anion Gap 8 (5-15); BUN 11 mg/dL (7-18); BUN/Creat Ratio 14.6 RATIO (10-20); Calcium,Total 9.3 mg/dL (8.5-10.1); Chloride 108 mmol/L (98-107); Creatinine, Serum 0.75 mg/dL (0.55-1.02); EST Glomerular Filtration Rate 93 mL/min (>60); Est Glom Filt Rate - Afr Amer 112 mL/min (>60); Estimated Creatinine Clearance 98.01 ml/min; Glucose 93 mg/dL (74-106); Sodium Level 141 mmol/L (136-145); Troponin-I HS (w/2H Reflex) 3 pg/mL (3.0-54.0)
[2022-05-04 14:59] LABS: Reflex Troponin-HS? (from REC) Y
== END 2022-05-04 15:12 | disposition home or self-care (01) ==
PROVIDERS: Emergency Provider Emergency Medicine; PCP Physician Assistant; Visit Provider Emergency Medicine
DX: R07.9 Chest pain, unspecified (principal); M54.9 Dorsalgia, unspecified; Z90.49 Acquired absence of other specified parts of digestive tract
CPT/HCPCS: 71045; 80048; 84484; 85025; 85379; 93005; 99284; A4216

== ENCOUNTER 2025-02-14 10:46 | Emergency (ER) | payer OTHER, BC, SELFPAY ==
[2025-02-14 10:47] VITALS: BP 118/76; PULSE 88; RESP 16; TEMP 36.4; O2SAT 98; BMI 28.4
[2025-02-14] MEDS: Ketorolac 30 MG/ML Syringe IM (11:46)
[2025-02-14] MEDS: Orphenadrine 60 MG/2 ML Ampul IM (11:46)
[2025-02-14 12:37] VITALS: BP 122/73; PULSE 62; RESP 16; TEMP 36.6; O2SAT 99
== END 2025-02-14 12:38 | disposition home or self-care (01) ==
PROVIDERS: Emergency Provider Emergency Medicine; Visit Provider Emergency Medicine
DX: M54.50 Low back pain, unspecified (principal); G89.29 Other chronic pain
CPT/HCPCS: 96372; 99282

== ENCOUNTER → 2025-05-01 | Outpatient (CLI) | payer OTHER, BC, SELFPAY ==
[2025-05-01 15:33] LABS: Anion Gap 13 (5-15); BUN 16 mg/dL (4-19); BUN/Creat Ratio 20.4 RATIO (10-20); Calcium,Total 10.0 mg/dL (7.6-11.0); Carbon Dioxide 22.2 mmol/L (21.0-32.0); Chloride 103 mmol/L (98-108); Cholesterol 184 mg/dL (<=200); Glucose 95 mg/dL (70-99); Low Density Lipoprotein Calc. 108 mg/dL; Potassium 4.2 mmol/L (3.3-5.1); Triglycerides 80 mg/dL; Very Low Density Lipoprotein 16 mg/dL (5-40); cholesterol:hdl ratio screen 3.09
== END | disposition home or self-care (01) ==
LOC: MTLAB 11:43
PROVIDERS: Referring Provider Family Medicine; Visit Provider Family Medicine
DX: Z00.00 Encounter for general adult medical examination without abnormal findings (principal)
CPT/HCPCS: 36415; 80048; 80061

== ENCOUNTER → 2025-05-06 | Outpatient (CLI) | payer OTHER, BC, SELFPAY ==
[2025-05-09 16:09] LABS: HPV APTIMA, High Risk Negative (Negative)
== END | disposition home or self-care (01) ==
PROVIDERS: Referring Provider Family Medicine; Visit Provider Family Medicine
DX: Z12.4 Encounter for screening for malignant neoplasm of cervix (principal)
CPT/HCPCS: 87624; 88175; G0145